=== PATIENT | female | born 1955 | race Caucasian/White ===

== ENCOUNTER 2016-12-26 12:16 | Inpatient (IN) | payer OTHER ==
[~2016-12-26] VITALS: Ht 154.9 cm; Wt 58.4 kg
[2016-12-26 12:22] VITALS: BP 143/89; PULSE 79; RESP 16; TEMP 97.6; O2SAT 100
--- NOTE | 2016-12-26 12:41 | PD ---
HPI Chief Complaint: Skin Problem Time Seen by Provider: 12:41 Travel History International Travel<30 days: No Contact w/Intl Traveler<30days: No Traveled to known affect area: No History of Present Illness HPI 61-year-old female came to the emergency room with history of abscess in her pubic area going to the left lower abdominal wall. Patient was in the urgent care and she was sent to the emergency room given the extent of the abscess. An says that she has had it for past 1 week. She had issues with her insurance and hence did not want to come to the emergency room to that got fixed. Since yesterday she has started to drain purulent drainage from one of the openings on the pubic area. The pain is little better since then. She does not have a primary care physician. Patient otherwise looks in no severe distress PFSH Past Medical History Narrative Medical List of her past medical, surgical, social and family history is reviewed from the nursing note. 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 Reported Meds & Prescriptions Reported Meds & Active Scripts Active Narrative Medication List of home medications reviewed from the nursing note. Review of Systems Except as stated in HPI: all other systems reviewed are Neg Physical Exam Narrative GENERAL: Awake, alert, no obvious distress SKIN: Focused skin assessment warm/dry. Extensive 10 x 5 cm abscess from mons pubis all the way up to the anterior superior iliac spine on the right-hand side. There is fluctuant fluid collection all throughout that area extending up to the lower abdominal wall superiorly. Inferiorly it is restricted by the inguinal ligament. HEAD: Atraumatic. Normocephalic. EYES: Pupils equal and round. No scleral icterus. No injection or drainage. ENT: No nasal bleeding or discharge. Mucous membranes pink and moist. NECK: Trachea midline. No JVD. CARDIOVASCULAR: Regular rate and rhythm. No murmur appreciated. RESPIRATORY: No accessory muscle use. Clear to auscultation. Breath sounds equal bilaterally. GASTROINTESTINAL: Abdomen soft, non-tender, nondistended. Hepatic and splenic margins not palpable. MUSCULOSKELETAL: No obvious deformities. No clubbing. No cyanosis. No edema. NEUROLOGICAL: Awake and alert. No obvious cranial nerve deficits. Motor grossly within normal limits. Normal speech. PSYCHIATRIC: Appropriate mood and affect; insight and judgment normal. Data Data Last Documented VS Orders Complete Blood Count With Diff (12/26/16 12:46) Comprehensive Metabolic Panel (12/26/16 12:46) Lactic Acid Sepsis Protocol (12/26/16 12:46) Urinalysis - C+S If Indicated (12/26/16 12:46) Blood Culture (12/26/16 12:46) Wound Culture And Gram Stain (12/26/16 12:46) Chest, Single Ap (12/26/16 12:46) Blood Glucose (12/26/16 12:46) Ecg Monitoring (12/26/16 12:46) Iv Access Insert/Monitor (12/26/16 12:46) Oximetry (12/26/16 12:46) Oxygen Administration (12/26/16 12:46) Ct Abd/Pel W Iv Contrast(Rout) (12/26/16 ) Vancomycin Inj (Vancomycin Inj) (12/26/16 13:00) Piperacil-Tazo 4.5 Gm Premix (Zosyn 4.5 (12/26/16 13:00) Urine Culture (12/26/16 12:50) Iohexol 350 Inj (Omnipaque 350 Inj) (12/26/16 14:22) Admit Order (Ed Use Only) (12/26/16 14:49) Labs Laboratory Tests Test 12/26/16 12/26/16 12:50 13:00 Urine Collection Type CATH Urine Color YELLOW Urine Turbidity CLEAR Urine pH 5.5 Urine Specific [place] 1.010 Urine Protein TRACE mg/dL Urine Glucose (UA) NEG mg/dL Urine Ketones NEG mg/dL Urine Occult Blood NEG Urine Nitrite POS Urine Bilirubin NEG Urine Leukocyte Esterase SMALL Urine WBC 3-5 /hpf Urine Squamous Epithelial 0-5 /hpf Cells Urine Bacteria MANY /hpf Microscopic Urinalysis Comment CULTURE INDICATED White Blood Count 9.6 TH/MM3 Red Blood Count 4.65 MIL/MM3 Hemoglobin 14.3 GM/DL Hematocrit 42.9 % Mean Corpuscular Volume 92.1 FL Mean Corpuscular Hemoglobin 30.6 PG Mean Corpuscular Hemoglobin 33.2 % Concent Red Cell Distribution Width 14.2 % Platelet Count 377 TH/MM3 Mean Platelet Volume 7.5 FL Neutrophils (%) (Auto) 82.2 % Lymphocytes (%) (Auto) 10.7 % Monocytes (%) (Auto) 5.5 % Eosinophils (%) (Auto) 0.9 % Basophils (%) (Auto) 0.7 % Neutrophils # (Auto) 7.9 TH/MM3 Lymphocytes # (Auto) 1.0 TH/MM3 Monocytes # (Auto) 0.5 TH/MM3 Eosinophils # (Auto) 0.1 TH/MM3 Basophils # (Auto) 0.1 TH/MM3 CBC Comment DIFF FINAL Differential Comment MDM Medical Decision Making Medical Screen Exam Complete: Yes Emergency Medical Condition: Yes Medical Record Reviewed: Yes Differential Diagnosis Abscess, complicated extensive abscess Narrative Course 12:51 PM have ordered blood work, CT abdomen pelvis. Patient has told me that she does not have history of diabetes although she has not seen a doctor for a while. The abscess is pretty extensive and I have started her on right spectrum antibiotic. I have ordered a CT scan as well to see the extent of the abscess internally. She might need to be transferred to the main hospital. Patient will require abscess drainage by the surgeon. [address] scan shows a lot of inflammatory changes and induration with no abscess pocket as per the radiologist. I discussed the case with Dr. Leon from general surgery. He wants the patient to be admitted medically and he'll consult on the patient. Hospitalist has accepted the patient. I let her know about the plan and she is comfortable with it. Procedures EKG Prior to Arrival: No Physician Communication Physician Communication Dr. Leon Diagnosis Primary Impression: Abdominal wall abscess Additional Impression: UTI (urinary tract infection) Qualified Code: N39.0 - Urinary tract infection without hematuria, site unspecified Admitting Information Admitting Physician Requests: Observation Scripts Rifampin 300 Mg Ytt017 Mg PO BID #28 CAP Ref 0 Prov:Jhony Gunter MD 12/30/16 Sulfamethoxazole-Trimethoprim (Bactrim DS)800-160 Mg Tab1 Tab PO BID #28 TAB Ref 0 Prov:Jhony Gunter MD 12/30/16 Oxycodone 5 Mg Tab5 Mg PO Q4H PRN (pain) #30 TAB Prov:Jhony Gunter MD 12/30/16 Rosangela Tinsley MD December 26, 2016 12:41 [facility] Medical Decision Making Medical Screen Exam Complete: Yes Emergency Medical Condition: Yes Medical Record Reviewed: Yes Differential Diagnosis Abscess, complicated extensive abscess Narrative Course 12:51 PM have ordered blood work, CT abdomen pelvis. Patient has told me that she does not have history of diabetes although she has not seen a doctor for a while. The abscess is pretty extensive and I have started her on right spectrum antibiotic. I have ordered a CT scan as well to see the extent of the abscess internally. She might need to be transferred to the main hospital. Patient will require abscess drainage by the surgeon. [address] scan shows a lot of inflammatory changes and induration with no abscess pocket as per the radiologist. I discussed the case with Dr. Leon from general surgery. He wants the patient to be admitted medically and he'll consult on the patient. Hospitalist has accepted the patient. I let her know about the plan and she is comfortable with it. Procedures EKG Prior to Arrival: No Physician Communication Physician Communication Dr. Leon Diagnosis Primary Impression: Abdominal wall abscess Additional Impression: UTI (urinary tract infection) Qualified Code: N39.0 - Urinary tract infection without hematuria, site unspecified Admitting Information Admitting Physician Requests: Observation Scripts No Active Prescriptions or Reported Meds Rosangela Tinsley MD December 26, 2016 12:41
[2016-12-26 13:00] LABS: BLOOD, URINE NEG (NEG); GLUCOSE,URINE NEG (NEG); KETONE, URINE NEG (NEG); PH, URINE 5.5 (5.0-8.5)
[2016-12-26] MEDS ORDERED: VANCOMYCIN INJ 1,000 MG in SODIUM CHLOR 0.9% 250 ML INJ 250 ML IV ONE (13:00)
[2016-12-26] MEDS ORDERED: PIPERACIL-TAZO 4.5 GM PREMIX 100 ML IV ONE (13:00)
[2016-12-26 13:04] LABS: NITRITE,URINE POS (NEG)
[2016-12-26 13:06] LABS: METHOD OF COLLECTION CATH; URINE COLOR YELLOW (YELLW/STRAW)
[2016-12-26 13:07] LABS: BACTERIA, URINE MANY /hpf; COMMENT (UR) CULTURE INDICATED; CULTURE IF INDICATED CULTURE INDICATED; SQUAMOUS EPITHELIAL CELL URINE 0-5 /hpf (0-5)
[2016-12-26 13:13] LABS: AUTOMATED NEUTROPHIL # 7.9 TH/MM3 (1.8-7.7); BASOPHIL # 0.1 TH/MM3 (0-0.2); BASOPHIL % 0.7 % (0.0-2.0); EOSINOPHIL # 0.1 TH/MM3 (0-0.4); EOSINOPHIL % 0.9 % (0.0-4.0); HEMATOCRIT 42.9 % (35.0-46.0); LYMPH % 10.7 % (9.0-44.0); MEAN CELL VOLUME 92.1 FL (80.0-100.0); MEAN CORPUSCULAR HEMOGLOBIN 30.6 PG (27.0-34.0); MEAN CORPUSCULAR HGB CONC 33.2 % (32.0-36.0); MONO % 5.5 % (0.0-8.0); NEUT % 82.2 % (16.0-70.0); PLATELET COUNT 377 TH/MM3 (150-450); RED BLOOD COUNT 4.65 MIL/MM3 (4.00-5.30); RED CELL DISTRIBUTION WIDTH 14.2 % (11.6-17.2); WHITE BLOOD COUNT 9.6 TH/MM3 (4.0-11.0)
[2016-12-26 13:14] LABS: HEMO FLAGS DIFF FINAL
--- NOTE | 2016-12-26 13:23 | RADHPO ---
EXAM DATE/TIME: 12/26/2016 12:57 [facility] COMPARISON: No previous studies available for comparison. INDICATIONS : Patient states she has been short of breath since this morning. She also states she has a boil that h as burst. MEDICAL HISTORY : None. SURGICAL HISTORY : None. ENCOUNTER: Initial ACUITY: 1 day PAIN SCORE: 0/10 LOCATION: Bilateral chest FINDINGS: The heart is normal. The pulmonary vascular pattern is normal. There is minimal blunting of the cos tophrenic recesses consistent with tiny pleural effusions and/or pleural thickening. No focal pulmon zeyad consolidation is noted. CONCLUSION: 1. Blunting of the costophrenic recesses consistent with tiny pleural effusions and/or pleural thick ening. 2. No acute focal pulmonary infiltrate or pulmonary vascular congestion. Dat Villavicencio MD on December 26, 2016 at 13:16 Board Certified Radiologist. This report was verified electronically.
[2016-12-26 13:25] LABS: CHLORIDE 105 MEQ/L (98-107); POTASSIUM 3.5 MEQ/L (3.5-5.1); SODIUM (NA) 141 MEQ/L (136-145)
[2016-12-26 13:27] VITALS: BP 138/77; PULSE 85; RESP 18
[2016-12-26 13:29] LABS: ANION GAP 11 MEQ/L (5-15); BICARBONATE 25.2 MEQ/L (21.0-32.0); BLOOD UREA NITROGEN 12 MG/DL (7-18)
[2016-12-26 13:32] LABS: ALT (GPT) 16 U/L (10-53); AST (GOT) 13 U/L (15-37); GLOMERULAR FILTRATION RATE 64 ML/MIN (>89)
[2016-12-26 13:33] LABS: TOTAL BILIRUBIN ADULT 0.4 MG/DL (0.2-1.0)
[2016-12-26 13:35] LABS: ALKALINE PHOSPHATASE 138 U/L (45-117)
[2016-12-26 14:20] VITALS: BP 120/75; PULSE 77; RESP 18; O2SAT 98
[2016-12-26] MEDS ORDERED: IOHEXOL 350 MG/ML 10 ML VIAL (for RAD DIAG) IV ONE (14:22)
--- NOTE | 2016-12-26 14:39 | RADHPO ---
EXAM DATE/TIME: 12/26/2016 13:49 [facility] COMPARISON: No previous studies available for comparison. INDICATIONS : Patient complains of boil right pubic area. IV CONTRAST: 95 cc Omnipaque 350 (iohexol) IV Injection Site: Lt AC Lot: [id number] Exp Date: Sep 2019 Lot: Exp Date : ORAL CONTRAST: No oral contrast ingested. RADIATION DOSE: 6.41 CTDIvol (mGy) MEDICAL HISTORY : None SURGICAL HISTORY : Hysterectomy. ENCOUNTER: Initial ACUITY: 1 day PAIN SCALE: 0/10 LOCATION: Right lower quadrant TECHNIQUE: Volumetric scanning of the abdomen and pelvis was performed. Using automated exposure control and ad justment of the mA and/or kV according to patient size, radiation dose was kept as low as reasonably achievable to obtain optimal diagnostic quality images. FINDINGS: LOWER LUNGS: The visualized lower lungs are clear. LIVER: Homogeneous density without lesion. There is no dilation of the biliary tree. No calcified [place] es. SPLEEN: Normal size without lesion. PANCREAS: Within normal limits. KIDNEYS: Normal in size and shape. There is no mass, stone or hydronephrosis. ADRENAL GLANDS: Within normal limits. VASCULAR: Diffuse calcified atherosclerotic plaque. No aneurysmal change or appreciable stenosis. BOWEL/MESENTERY: The stomach, small bowel, and colon demonstrate no acute abnormality. There is no free intraperitone al air or fluid. ABDOMINAL WALL: There is stranding of the subcutaneous fat involving the right lower quadrant anterior abdominal wall . No abscess or fluid collection observed. RETROPERITONEUM: There is no lymphadenopathy. BLADDER: No wall thickening or mass. REPRODUCTIVE: Within normal limits. INGUINAL: There is a single enlarged lymph node within the left external iliac chain. It has rim calcification. This measures 2.3 x 1.7 cm. No other adenopathy seen. MUSCULOSKELETAL: Within normal limits for patient age. CONCLUSION: 1. Inflammatory process involving the right lower quadrant intra-abdominal wall. No abscess or fluid collection. 2. Solitary enlarged left external iliac lymph node. No other adenopathy appreciated. Consider follow up CT of the abdomen and pelvis in 6-12 months to document stability. Heber Izquierdo Jr., MD on December 26, 2016 at 14:29 Board Certified Radiologist. This report was verified electronically.
[2016-12-26] MEDS ORDERED: SODIUM CHLOR 0.9% 1000 ML INJ 1,000 ML IV SCH (15:07)
[2016-12-26] MEDS ORDERED: NALOXONE HCL 0.4 MG/ML AMP IV PRN (15:15)
[2016-12-26] MEDS ORDERED: MORPHINE SULFATE 4 MG/ML INJ IV PRN (15:15)
[2016-12-26] MEDS ORDERED: ONDANSETRON HCL 4 MG/2 ML VIAL IVP PRN (15:15)
[2016-12-26] MEDS ORDERED: SENNOSIDES 8.6 MG TAB PO PRN (15:15)
[2016-12-26] MEDS ORDERED: SODIUM CHLORIDE 0.9% FLUSH 10 ML FLUSH IV FLUSH PRN (15:15)
[2016-12-26] MEDS ORDERED: ACETAMINOPHEN 325 MG TAB PO PRN ×2 (15:15)
--- NOTE | 2016-12-26 15:29 | HHI.HP ---
[facility] Primary Care Physician Admission Diagnosis inferior abdominal wall cellulitis, draining abscess Diagnoses: Chief Complaint: Abscess Travel History International Travel<30 Days: No Contact w/Intl Traveler <30 Da: No Traveled to Known Affected Are: No History of Present Illness The patient is a 61-year-old female with no significant past medical history who is presenting to the hospital with an abscess. The patient says that about 4 or 5 days ago she noticed a boil on the mound of her pubic area. She did say she shaves that area. She said it was bothersome and painful. She said it continued to enlarge. She tried taking hot baths and using warm compresses but those did not seem to help. On Sunday she went to urgent care but she left before they could treat her because there were insurance problems. She says she tried using a bread and milk poultice and after using that the area started draining spontaneously. She denied a foul-smelling odor associated with it. She did say that the area of infection along with the lower right side of her abdomen and right flank was very red and very tender. She said the pain was a 9 out of 10 in severity at its worst. She denies any fevers. She does endorse a loss of appetite. She says the abscess has continued to drain and today it looks 65% better than it did a few days ago. She went back to urgent care today and she was referred to the emergency department. She currently says she is pain-free. She said previously she had a hard time ambulating secondary to the pain but now she is ambulating at baseline. Review of Systems Except as stated in HPI: all other systems reviewed are Neg Past Family Social History Past Medical History Denies Past Surgical History Bilateral wrist surgery Hysterectomy Tubal ligation Tonsillectomy Allergies: Coded Allergies: Alcohol (Verified Allergy, Severe, 12/26/16) Doxycycline (Verified Allergy, Severe, 12/26/16) Active Ordered Medications Current Medications Medications (Trade) Dose Ordered Sig/Deann Route Start Time Stop Time Status Last Admin (NS 1000 ml Inj) 1,000 ml @ 100 mls/hr Q10H IV 12/26/16 15:07 12/27/16 01:06 UNV (NS Flush) 2 ml UNSCH PRN IV FLUSH 12/26/16 15:15 UNV (NS Flush) 2 ml BID IV FLUSH 12/26/16 21:00 UNV (Tylenol) 650 mg Q4H PRN PO 12/26/16 15:15 UNV (Zofran Inj) 4 mg Q6H PRN IVP 12/26/16 15:15 UNV (Colace) 100 mg Q12H PO 12/26/16 15:15 UNV (Senokot) 17.2 mg Q12H PRN PO 12/26/16 15:15 UNV (Tylenol) 650 mg Q6H PRN PO 12/26/16 15:15 UNV (Roxicodone) 10 mg Q4H PRN PO 12/26/16 15:15 UNV (Morphine Inj) 4 mg Q3H PRN IV 12/26/16 15:15 UNV (Roxicodone) 5 mg Q4H PRN PO 12/26/16 15:15 UNV (Narcan Inj) 0.4 mg UNSCH PRN IV 12/26/16 15:15 UNV Family History CAD Diabetes Brain cancer Melanoma Gynecological cancer Social History The patient smokes 1 pack daily. She has social alcohol use. She smokes marijuana occasionally. Physical Exam Vital Signs Vital Signs Date Time Temp Pulse Resp B/P Pulse Ox O2 Delivery O2 Flow Rate FiO2 12/26/16 14:20 77 18 120/75 98 Room Air 12/26/16 13:27 85 18 138/77 Room Air 99 12/26/16 13:11 100 Room Air 12/26/16 12:22 97.6 79 16 143/89 100 Physical Exam GENERAL: Resting comfortably, no obvious distress. SKIN: Extensive 10 x 5 cm abscess from mons pubis all the way up to the anterior superior iliac spine on the right-hand side. There is fluctuant fluid collection all throughout that area extending up to the lower abdominal wall superiorly. Inferiorly it is restricted by the inguinal ligament. Nontender to palpation. HEAD: Atraumatic. Normocephalic. EYES: Pupils equal and round. No scleral icterus. No injection or drainage. ENT: No nasal bleeding or discharge. Mucous membranes pink and moist. NECK: Trachea midline. No JVD. CARDIOVASCULAR: Regular rate and rhythm. No murmur appreciated. RESPIRATORY: No accessory muscle use. Clear to auscultation. Breath sounds equal bilaterally. GASTROINTESTINAL: Abdomen soft, non-tender, nondistended. Hepatic and splenic margins not palpable. MUSCULOSKELETAL: No obvious deformities. No clubbing. No cyanosis. No edema. NEUROLOGICAL: Awake and alert. No obvious cranial nerve deficits. Motor grossly within normal limits. Normal speech. PSYCHIATRIC: Appropriate mood and affect; insight and judgment normal. Laboratory Laboratory Tests Test 12/26/16 12/26/16 12:50 13:00 Urine Collection Type CATH Urine Color YELLOW Urine Turbidity CLEAR Urine pH 5.5 Urine Specific [place] 1.010 Urine Protein TRACE Urine Glucose (UA) NEG Urine Ketones NEG Urine Occult Blood NEG Urine Nitrite POS Urine Bilirubin NEG Urine Leukocyte Esterase SMALL Urine WBC 3-5 Urine Squamous Epithelial 0-5 Cells Urine Bacteria MANY Microscopic Urinalysis Comment CULTURE INDICATED White Blood Count 9.6 Red Blood Count 4.65 Hemoglobin 14.3 Hematocrit 42.9 Mean Corpuscular Volume 92.1 Mean Corpuscular Hemoglobin 30.6 Mean Corpuscular Hemoglobin 33.2 Concent Red Cell Distribution Width 14.2 Platelet Count 377 Mean Platelet Volume 7.5 Neutrophils (%) (Auto) 82.2 Lymphocytes (%) (Auto) 10.7 Monocytes (%) (Auto) 5.5 Eosinophils (%) (Auto) 0.9 Basophils (%) (Auto) 0.7 Neutrophils # (Auto) 7.9 Lymphocytes # (Auto) 1.0 Monocytes # (Auto) 0.5 Eosinophils # (Auto) 0.1 Basophils # (Auto) 0.1 CBC Comment DIFF FINAL Differential Comment Sodium Level 141 Potassium Level 3.5 Chloride Level 105 Carbon Dioxide Level 25.2 Anion Gap 11 Blood Urea Nitrogen 12 Creatinine 0.90 Estimat Glomerular Filtration 64 Rate Random Glucose 88 Lactic Acid Level 1.0 Calcium Level 9.0 Total Bilirubin 0.4 Aspartate Amino Transf 13 (AST/SGOT) Alanine Aminotransferase 16 (ALT/SGPT) Alkaline Phosphatase 138 Total Protein 7.7 Albumin 3.1 Date/Time Procedure Status Source Growth 12/26/16 13:05 Aerobic Blood Culture Received Blood Peripheral Pending 12/26/16 13:05 Anaerobic Blood Culture Received Blood Peripheral Pending 12/26/16 13:00 Gram Stain Received Wound Abdomen Pending 12/26/16 13:00 Wound Culture Received Wound Abdomen Pending 12/26/16 12:50 Urine Culture Received Urine Catheterized Urine Pending Result Diagram: 12/26/16 1300 12/26/16 1300 Imaging Last Impressions Chest X-Ray 12/26/16 1246 Signed Impressions: Service Date/Time: Monday, December 26, 2016 12:57 - CONCLUSION: 1. Blunting of the costophrenic recesses consistent with tiny pleural effusions and/or pleural thickening. 2. No acute focal pulmonary infiltrate or pulmonary vascular congestion. Dat Villavicencio MD Abdomen/Pelvis CT 12/26/16 0000 Signed Impressions: Service Date/Time: Monday, December 26, 2016 13:49 - CONCLUSION: 1. Inflammatory process involving the right lower quadrant intra-abdominal wall. No abscess or fluid collection. 2. Solitary enlarged left external iliac lymph node. No other adenopathy appreciated. Consider followup CT of the abdomen and pelvis in 6-12 months to document stability. Heber Izquierdo Jr., MD Assessment and Plan Assessment and Plan Suprapubic abscess The pt developed an abscess following shaving in that area. She did endorse significant drainage from the site and she says it looks and feels a lot better. CT showed: Inflammatory process involving the right lower quadrant intra-abdominal wall; No abscess or fluid collection; Solitary enlarged left external iliac lymph node; No other adenopathy appreciated. - continue vancomycin and Zosyn. - IVFs. - pain control with a bowel regimen. - general surgery consult pending. - follow wound and blood cultures. - followup CT of the abdomen and pelvis in 6-12 months to document stability. UTI UA indicative of infection. - antibiotics as above. - follow urine culture. Nicotine dependence The pt smokes a pack daily. - cessation instruction. - nicotine patch if needed. Code Status Full. Discussed Condition With Dr. Tinsley, nurse. Melecio Quick DO December 26, 2016 15:29
[2016-12-26] MEDS ORDERED: Vancomycin Consult Pharmacy 1 EA OTHER SCH (15:30)
[2016-12-26 16:00] VITALS: BP 124/74; PULSE 84; RESP 18; TEMP 98; O2SAT 98
[2016-12-26] MEDS ORDERED: POTASSIUM CHLORIDE 20 MEQ CONTROLLED RELEASE TAB PO ONE (16:00)
--- NOTE | 2016-12-26 19:03 | PD.CONS ---
cc: Tam Leon MD HPI Service General Surgery Consult Requested By Dr. Quick Reason for Consult RIGHT inguinal superficial abscess Primary Care Physician No Primary Care Physician History of Present Illness This is a 61 year old female who started noticing a red area in her RIGHT groin area about 6 days ago. On Sunday the pain increased and she went to an Urgent Care. She left before being seen due to insurance reasons. On Sunday evening she put bread and milk poultice on the area and on Sunday she reports there was a 65% improvement in the size and decrease in pain. She noticed thick off white drainage on Sunday. She does report she shaves that area. She has come to the ED at [facility] for evaluation of the RIGHT groin. A General Surgery consultation has been requested. Review of Systems Constitutional: DENIES: Fever, Weight gain Endocrine: DENIES: Polydipsia, Polyuria, Polyphagia Eyes: DENIES: Diplopia, Eye inflammation Ears, nose, mouth, throat: DENIES: Hearing loss, Vertigo Respiratory: DENIES: Apneas, Cough Cardiovascular: DENIES: Chest pain, Palpitations Gastrointestinal: DENIES: Abdominal pain, Nausea, Vomiting Genitourinary: DENIES: Urinary frequency, Urinary incontinence Musculoskeletal: DENIES: Joint pain Integumentary: COMPLAINS OF: Abnormal pigmentation (Red RIGHT inguinal area with swelling ) Hematologic/lymphatic: DENIES: Bruising Immunologic/allergic: DENIES: Eczema Neurologic: DENIES: Headache, Localized weakness Psychiatric: DENIES: Mood changes, Depression, Hallucinations Past Family Social History Past Medical History None Past Surgical History Bilateral wrist surgery Hysterectomy Tubal ligation Tonsillectomy Reported Medications None Allergies: Coded Allergies: Alcohol (Verified Allergy, Severe, 12/26/16) Doxycycline (Verified Allergy, Severe, 12/26/16) *MDRO Multi-Drug Resistant Organism (Verified Adverse Reaction, Unknown, ) 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; (groin) - 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/16 Active Ordered Medications Current Medications Medications (Trade) Dose Ordered Sig/Deann Route Start Time Stop Time Status Last Admin (NS 1000 ml Inj) 1,000 ml @ 100 mls/hr Q10H IV 12/26/16 15:07 12/27/16 01:06 12/26/16 15:22 (NS Flush) 2 ml UNSCH PRN IV FLUSH 12/26/16 15:15 (NS Flush) 2 ml BID IV FLUSH 12/26/16 21:00 (Tylenol) 650 mg Q4H PRN PO 12/26/16 15:15 (Zofran Inj) 4 mg Q6H PRN IVP 12/26/16 15:15 (Colace) 100 mg Q12HR PO 12/26/16 21:00 (Senokot) 17.2 mg Q12H PRN PO 12/26/16 15:15 (Tylenol) 650 mg Q6H PRN PO 12/26/16 15:15 (Roxicodone) 10 mg Q4H PRN PO 12/26/16 15:15 (Morphine Inj) 4 mg Q3H PRN IV 12/26/16 15:15 (Roxicodone) 5 mg Q4H PRN PO 12/26/16 15:15 Naloxone HCl 0.4 mg 0.4 mg UNSCH PRN IV 12/26/16 15:15 Piperacillin Sod/ Tazobactam Sod 100 ml @ 200 mls/hr Q6H IV 12/26/16 20:00 Pharmacy Profile Note 0 ml @ 0 mls/hr UNSCH OTHER 12/26/16 15:30 (Vancomycin Inj/ NS 250 ml Inj) 250 ml @ 250 mls/hr DAILY@13 IV 12/27/16 13:00 Family History Non contributory Social History + Tobacco --- 1 pack/day + ETOH--- social; not daily Denies illicit drug use Physical Exam Vital Signs Vital Signs Date Time Temp Pulse Resp B/P Pulse Ox O2 Delivery O2 Flow Rate FiO2 12/26/16 16:00 98.0 84 18 124/74 98 12/26/16 16:00 98.0 84 18 124/74 98 12/26/16 14:20 77 18 120/75 98 Room Air 12/26/16 13:27 85 18 138/77 Room Air 99 12/26/16 13:11 100 Room Air 12/26/16 12:22 97.6 79 16 143/89 100 Physical Exam GENERAL: Pleasant 61 year old female resting in bed in NAD. SKIN: RIGHT inguinal area: reddened area with peeling skin; edema; small opening in reddened area with spontaneously draining thick pus. Manually expressed about 15 cc during exam. HEAD: Atraumatic. Normocephalic. EYES: Pupils equal and round. No scleral icterus. No injection or drainage. ENT: No nasal bleeding or discharge. Mucous membranes pink and moist. NECK: Trachea midline. CARDIOVASCULAR: Regular rate and rhythm. RESPIRATORY: No accessory muscle use. Clear to auscultation. Breath sounds equal bilaterally. GASTROINTESTINAL: Abdomen soft, non-tender, nondistended. . MUSCULOSKELETAL: Extremities without clubbing, cyanosis, or edema. No obvious deformities. NEUROLOGICAL: Awake and alert. No obvious cranial nerve deficits. Motor grossly within normal limits. Five out of 5 muscle strength in the arms and legs. Normal speech. PSYCHIATRIC: Appropriate mood and affect; insight and judgment normal. Laboratory Laboratory Tests Test 12/26/16 12/26/16 12:50 13:00 Urine Collection Type CATH Urine Color YELLOW Urine Turbidity CLEAR Urine pH 5.5 Urine Specific [place] 1.010 Urine Protein TRACE Urine Glucose (UA) NEG Urine Ketones NEG Urine Occult Blood NEG Urine Nitrite POS Urine Bilirubin NEG Urine Leukocyte Esterase SMALL Urine WBC 3-5 Urine Squamous Epithelial 0-5 Cells Urine Bacteria MANY Microscopic Urinalysis Comment CULTURE INDICATED White Blood Count 9.6 Red Blood Count 4.65 Hemoglobin 14.3 Hematocrit 42.9 Mean Corpuscular Volume 92.1 Mean Corpuscular Hemoglobin 30.6 Mean Corpuscular Hemoglobin 33.2 Concent Red Cell Distribution Width 14.2 Platelet Count 377 Mean Platelet Volume 7.5 Neutrophils (%) (Auto) 82.2 Lymphocytes (%) (Auto) 10.7 Monocytes (%) (Auto) 5.5 Eosinophils (%) (Auto) 0.9 Basophils (%) (Auto) 0.7 Neutrophils # (Auto) 7.9 Lymphocytes # (Auto) 1.0 Monocytes # (Auto) 0.5 Eosinophils # (Auto) 0.1 Basophils # (Auto) 0.1 CBC Comment DIFF FINAL Differential Comment Sodium Level 141 Potassium Level 3.5 Chloride Level 105 Carbon Dioxide Level 25.2 Anion Gap 11 Blood Urea Nitrogen 12 Creatinine 0.90 Estimat Glomerular Filtration 64 Rate Random Glucose 88 Lactic Acid Level 1.0 Calcium Level 9.0 Total Bilirubin 0.4 Aspartate Amino Transf 13 (AST/SGOT) Alanine Aminotransferase 16 (ALT/SGPT) Alkaline Phosphatase 138 Total Protein 7.7 Albumin 3.1 Date/Time Procedure Status Source Growth 12/26/16 13:05 Aerobic Blood Culture Received Blood Peripheral Pending 12/26/16 13:05 Anaerobic Blood Culture Received Blood Peripheral Pending 12/26/16 13:00 Gram Stain Received Wound Abdomen Pending 12/26/16 13:00 Wound Culture Received Wound Abdomen Pending 12/26/16 12:50 Urine Culture Received Urine Catheterized Urine Pending Imaging Last 48 hours Impressions Chest X-Ray 12/26/16 1246 Signed Impressions: Service Date/Time: Monday, December 26, 2016 12:57 - CONCLUSION: 1. Blunting of the costophrenic recesses consistent with tiny pleural effusions and/or pleural thickening. 2. No acute focal pulmonary infiltrate or pulmonary vascular congestion. Dat Villavicencio MD Abdomen/Pelvis CT 12/26/16 0000 Signed Impressions: Service Date/Time: Monday, December 26, 2016 13:49 - CONCLUSION: 1. Inflammatory process involving the right lower quadrant intra-abdominal wall. No abscess or fluid collection. 2. Solitary enlarged left external iliac lymph node. No other adenopathy appreciated. Consider followup CT of the abdomen and pelvis in 6-12 months to document stability. Heber Izquierdo Jr., MD Assessment and Plan Assessment and Plan 61 year old female with spontaneously draining RIGHT inguinal superficial abscess; UTI -Continue dressing changes -Warm showers daily -K-pad to area -US for possible aspiration -Continue antibiotics -UTI management per primary team -Will continue to follow; patient may need an I&D Discussed Condition With Dr. Edward Espinosa Attending Statement patient seen at bedside pt with draining abscess but still with undrained fluid collection, ct reviewed with minimal fluid collection discussed with patient and staff. Pt will go to OR for I and D and VAC placement. Attestation Attending NoteThe exam, history, and the medical decision-making described in the above note were completed with the assistance of the mid-level provider. I reviewed and agree with the findings presented. I attest that I had a [id number] encounter with the patient on the same day, and personally performed and documented my assessment and findings in the medical record. Ignacia Malone December 26, 2016 19:03 Tam Leon MD January 04, 2017 21:42
[2016-12-26 20:00] VITALS: BP 131/85; PULSE 64; RESP 20; TEMP 97.1; O2SAT 95
[2016-12-26] MEDS: SODIUM CHLORIDE 0.9% FLUSH 10 ML FLUSH IV FLUSH SCH (21:00)
[2016-12-26] MEDS: PIPERACIL-TAZO 4.5 GM PREMIX 100 ML IV SCH (21:17)
[2016-12-26] MEDS: DOCUSATE SODIUM 100 MG CAP PO SCH (21:17)
[2016-12-27] VITALS: BP 119/71; PULSE 65; RESP 20; TEMP 97.4; O2SAT 96
[2016-12-27] MEDS: PIPERACIL-TAZO 4.5 GM PREMIX 100 ML IV SCH ×4 (01:34→20:18)
[2016-12-27 06:13] LABS: POTASSIUM 3.9 MEQ/L (3.5-5.1)
[2016-12-27 06:17] LABS: BICARBONATE 27.4 MEQ/L (21.0-32.0)
[2016-12-27 07:04] LABS: AUTOMATED NEUTROPHIL # 5.3 TH/MM3 (1.8-7.7); BASOPHIL % 0.6 % (0.0-2.0); EOSINOPHIL # 0.2 TH/MM3 (0-0.4); EOSINOPHIL % 2.7 % (0.0-4.0); HEMATOCRIT 41.7 % (35.0-46.0); HEMO FLAGS DIFF FINAL; LYMPH % 19.6 % (9.0-44.0); LYMPHOCYTE # 1.5 TH/MM3 (1.0-4.8); MEAN CORPUSCULAR HEMOGLOBIN 29.9 PG (27.0-34.0); MEAN CORPUSCULAR HGB CONC 32.5 % (32.0-36.0); MONO % 7.4 % (0.0-8.0); NEUT % 69.7 % (16.0-70.0); PLATELET COUNT 344 TH/MM3 (150-450); RED BLOOD COUNT 4.53 MIL/MM3 (4.00-5.30); RED CELL DISTRIBUTION WIDTH 14.4 % (11.6-17.2); WHITE BLOOD COUNT 7.6 TH/MM3 (4.0-11.0)
--- NOTE | 2016-12-27 07:59 | HHI.PR ---
Subjective Subjective Notes pain better still with draining abscess, no fevers Objective Vitals/I&O Vital Signs Date Time Temp Pulse Resp B/P Pulse Ox O2 Delivery O2 Flow Rate FiO2 12/27/16 00:00 97.4 65 20 119/71 96 12/26/16 14:20 Room Air 12/26/16 13:27 99 Labs Laboratory Tests Test 12/26/16 12/26/16 12/27/16 12:50 13:00 05:30 Urine Collection Type CATH Urine Color YELLOW Urine Turbidity CLEAR Urine pH 5.5 Urine Specific [place] 1.010 Urine Protein TRACE Urine Glucose (UA) NEG Urine Ketones NEG Urine Occult Blood NEG Urine Nitrite POS Urine Bilirubin NEG Urine Leukocyte Esterase SMALL Urine WBC 3-5 Urine Squamous Epithelial 0-5 Cells Urine Bacteria MANY Microscopic Urinalysis Comment CULTURE INDICATED White Blood Count 9.6 7.6 Red Blood Count 4.65 4.53 Hemoglobin 14.3 13.6 Hematocrit 42.9 41.7 Mean Corpuscular Volume 92.1 92.0 Mean Corpuscular Hemoglobin 30.6 29.9 Mean Corpuscular Hemoglobin 33.2 32.5 Concent Red Cell Distribution Width 14.2 14.4 Platelet Count 377 344 Mean Platelet Volume 7.5 8.2 Neutrophils (%) (Auto) 82.2 69.7 Lymphocytes (%) (Auto) 10.7 19.6 Monocytes (%) (Auto) 5.5 7.4 Eosinophils (%) (Auto) 0.9 2.7 Basophils (%) (Auto) 0.7 0.6 Neutrophils # (Auto) 7.9 5.3 Lymphocytes # (Auto) 1.0 1.5 Monocytes # (Auto) 0.5 0.6 Eosinophils # (Auto) 0.1 0.2 Basophils # (Auto) 0.1 0.0 CBC Comment DIFF FINAL DIFF FINAL Differential Comment Sodium Level 141 142 Potassium Level 3.5 3.9 Chloride Level 105 108 Carbon Dioxide Level 25.2 27.4 Anion Gap 11 7 Blood Urea Nitrogen 12 8 Creatinine 0.90 1.00 Estimat Glomerular Filtration 64 57 Rate Random Glucose 88 104 Lactic Acid Level 1.0 Calcium Level 9.0 8.5 Total Bilirubin 0.4 Aspartate Amino Transf 13 (AST/SGOT) Alanine Aminotransferase 16 (ALT/SGPT) Alkaline Phosphatase 138 Total Protein 7.7 Albumin 3.1 Date/Time Procedure Status Source Growth 12/26/16 13:05 Aerobic Blood Culture Received Blood Peripheral Pending 12/26/16 13:05 Anaerobic Blood Culture Received Blood Peripheral Pending 12/26/16 13:00 Gram Stain - Final Resulted Wound Abdomen 12/26/16 13:00 Wound Culture Resulted Wound Abdomen Pending 12/26/16 12:50 Urine Culture Received Urine Catheterized Urine Pending Radiology Last 48 hours Impressions Chest X-Ray 12/26/16 1246 Signed Impressions: Service Date/Time: Monday, December 26, 2016 12:57 - CONCLUSION: 1. Blunting of the costophrenic recesses consistent with tiny pleural effusions and/or pleural thickening. 2. No acute focal pulmonary infiltrate or pulmonary vascular congestion. Dat Villavicencio MD Abdomen/Pelvis CT 12/26/16 0000 Signed Impressions: Service Date/Time: Monday, December 26, 2016 13:49 - CONCLUSION: 1. Inflammatory process involving the right lower quadrant intra-abdominal wall. No abscess or fluid collection. 2. Solitary enlarged left external iliac lymph node. No other adenopathy appreciated. Consider followup CT of the abdomen and pelvis in 6-12 months to document stability. Heber Izquierdo Jr., MD Cardiovascular: Regular Lungs: Clear Abdomen: Other (erythema with drainage of fluid purulent ) A/P Assessment and Plan groin abscess currently draining PLAN NPO 0R today for I and d of groin abscess, possible vac iv abx pain control Tam Leon MD December 27, 2016 07:59
[2016-12-27 08:00] VITALS: BP 149/96; PULSE 71; RESP 20; TEMP 97.4; O2SAT 97
[2016-12-27] MEDS: DOCUSATE SODIUM 100 MG CAP PO SCH ×2 (09:00→20:18)
[2016-12-27] MEDS: SODIUM CHLORIDE 0.9% FLUSH 10 ML FLUSH IV FLUSH SCH ×2 (09:50→20:18)
[2016-12-27] MEDS ORDERED: ONDANSETRON HCL 4 MG/2 ML VIAL IV PUSH ONE (10:09)
[2016-12-27] MEDS ORDERED: PROPOFOL 200 MG/20 ML AMP IV ONE (10:09)
[2016-12-27 12:00] VITALS: BP 128/87; PULSE 54; RESP 20; TEMP 98.6; O2SAT 96
--- NOTE | 2016-12-27 12:34 | HHI.PR ---
Subjective Remarks The pt was resting comfortably. She was anxious about the I&D. She said her pain was controlled. She had no acute complaints. Objective Vitals Vital Signs Date Time Temp Pulse Resp B/P Pulse Ox O2 Delivery O2 Flow Rate FiO2 12/27/16 08:00 97.4 71 20 149/96 97 12/27/16 00:00 97.4 65 20 119/71 96 12/26/16 20:00 97.1 64 20 131/85 95 12/26/16 16:00 98.0 84 18 124/74 98 12/26/16 16:00 98.0 84 18 124/74 98 12/26/16 14:20 77 18 120/75 98 Room Air 12/26/16 13:27 85 18 138/77 Room Air 99 12/26/16 13:11 100 Room Air I/O 12/26/16 12/26/16 12/26/16 12/27/16 12/27/16 12/27/16 07:00 15:00 23:00 07:00 15:00 23:00 Intake Total 480 ml 1260 ml Balance 480 ml 1260 ml Intake Oral 480 ml 240 ml IV Total 1020 ml # Voids 1 1 2 # Bowel Movements 0 2 Result Diagram: 12/27/16 0530 12/27/16 0530 Imaging Last Impressions Chest X-Ray 12/26/16 1246 Signed Impressions: Service Date/Time: Monday, December 26, 2016 12:57 - CONCLUSION: 1. Blunting of the costophrenic recesses consistent with tiny pleural effusions and/or pleural thickening. 2. No acute focal pulmonary infiltrate or pulmonary vascular congestion. Dat Villavicencio MD Abdomen/Pelvis CT 12/26/16 0000 Signed Impressions: Service Date/Time: Monday, December 26, 2016 13:49 - CONCLUSION: 1. Inflammatory process involving the right lower quadrant intra-abdominal wall. No abscess or fluid collection. 2. Solitary enlarged left external iliac lymph node. No other adenopathy appreciated. Consider followup CT of the abdomen and pelvis in 6-12 months to document stability. Heber Izquierdo Jr., MD Objective Remarks GENERAL: Resting comfortably, no obvious distress. SKIN: Extensive 10 x 5 cm abscess from mons pubis all the way up to the anterior superior iliac spine on the right-hand side. There is fluctuant fluid collection all throughout that area extending up to the lower abdominal wall superiorly. Inferiorly it is restricted by the inguinal ligament. Nontender to palpation. HEAD: Atraumatic. Normocephalic. EYES: Pupils equal and round. No scleral icterus. No injection or drainage. ENT: No nasal bleeding or discharge. Mucous membranes pink and moist. NECK: Trachea midline. No JVD. CARDIOVASCULAR: Regular rate and rhythm. No murmur appreciated. RESPIRATORY: No accessory muscle use. Clear to auscultation. Breath sounds equal bilaterally. GASTROINTESTINAL: Abdomen soft, non-tender, nondistended. Hepatic and splenic margins not palpable. MUSCULOSKELETAL: No obvious deformities. No clubbing. No cyanosis. No edema. NEUROLOGICAL: Awake and alert. No obvious cranial nerve deficits. Motor grossly within normal limits. Normal speech. PSYCHIATRIC: Appropriate mood and affect; insight and judgment normal. Procedures I&D scheduled 12/27/16. Medications and IVs Current Medications Medications (Trade) Dose Ordered Sig/Deann Route Start Time Stop Time Status Last Admin (NS Flush) 2 ml UNSCH PRN IV FLUSH 12/26/16 15:15 (NS Flush) 2 ml BID IV FLUSH 12/26/16 21:00 12/27/16 09:50 (Tylenol) 650 mg Q4H PRN PO 12/26/16 15:15 (Zofran Inj) 4 mg Q6H PRN IVP 12/26/16 15:15 (Colace) 100 mg Q12HR PO 12/26/16 21:00 12/26/16 21:17 (Senokot) 17.2 mg Q12H PRN PO 12/26/16 15:15 (Tylenol) 650 mg Q6H PRN PO 12/26/16 15:15 (Roxicodone) 10 mg Q4H PRN PO 12/26/16 15:15 (Morphine Inj) 4 mg Q3H PRN IV 12/26/16 15:15 (Roxicodone) 5 mg Q4H PRN PO 12/26/16 15:15 Naloxone HCl 0.4 mg 0.4 mg UNSCH PRN IV 12/26/16 15:15 Piperacillin Sod/ Tazobactam Sod 100 ml @ 200 mls/hr Q6H IV 12/26/16 20:00 12/27/16 09:50 Pharmacy Profile Note 0 ml @ 0 mls/hr UNSCH OTHER 12/26/16 15:30 (Vancomycin Inj/ NS 250 ml Inj) 250 ml @ 250 mls/hr DAILY@13 IV 12/27/16 13:00 Miscellaneous Information SPECIFIC LAB TO BE DRAWN:VANCO TROUGH DATE... ONCE ONCE .XX 12/29/16 12:45 12/29/16 12:46 A/P Assessment and Plan Suprapubic abscess The pt developed an abscess following shaving in that area. She did endorse significant drainage from the site and she says it looks and feels a lot better. CT showed: Inflammatory process involving the right lower quadrant intra-abdominal wall; No abscess or fluid collection; Solitary enlarged left external iliac lymph node; No other adenopathy appreciated. - continue vancomycin and Zosyn. - IVFs. - pain control with a bowel regimen. - general surgery planning on I&D 12/27. - follow wound and blood cultures. - followup CT of the abdomen and pelvis in 6-12 months to document stability of lymph node. UTI UA indicative of infection. - antibiotics as above. - follow urine culture. Nicotine dependence The pt smokes a pack daily. - cessation instruction. - nicotine patch if needed. PPx: SCDs. Discharge Planning Awaiting surgical clearance. Melecio Quick DO December 27, 2016 12:34
[2016-12-27] MEDS ORDERED: FAMOTIDINE 20 MG/2 ML VIAL ONE (12:56)
[2016-12-27] MEDS ORDERED: MIDAZOLAM HCL 2 MG/2 ML VIAL ONE (12:56)
[2016-12-27] MEDS ORDERED: LACTATED RINGER'S 1000 ML INJ 1,000 ML ONE (13:03)
[2016-12-27] MEDS: VANCOMYCIN INJ 1,000 MG in SODIUM CHLOR 0.9% 250 ML INJ 250 ML IV SCH (13:07)
--- NOTE | 2016-12-27 13:33 | HHI.PR ---
Immediate Post Op Note Procedure Date: December 27, 2016 Pre Op Diagnosis: groin abscess Post Op Diagnosis: same Surgeon: Tam Leon MD It Integration Architect(s): see or sheet Procedure: I and D of groin abscess, vac Findings: pus Complications: none Specimen(s) removed: purulent drainage Estimated blood loss: 5cc Anesthesia: General Drains: Hemovac IVF Patient to: PACU Patient Condition: Good Tam Leon MD December 27, 2016 13:33
[2016-12-27] MEDS ORDERED: MORPHINE SULFATE 8 MG/ML INJ ONE (14:17)
[2016-12-27 16:00] VITALS: BP 152/86; PULSE 55; RESP 18; TEMP 98.6; O2SAT 94
[2016-12-27 20:00] VITALS: BP 124/82; PULSE 49; RESP 20; TEMP 97.9; O2SAT 93
[2016-12-28] VITALS: BP 125/81; PULSE 52; RESP 20; TEMP 96.9; O2SAT 95
[2016-12-28] MEDS: PIPERACIL-TAZO 4.5 GM PREMIX 100 ML IV SCH (02:22)
--- NOTE | 2016-12-28 05:42 | MP ---
cc: AURORA LEON MD DATE OF CONSULTATION 12/27/2016 PREOPERATIVE DIAGNOSIS Groin abscess. POSTOPERATIVE DIAGNOSIS Groin abscess. PROCEDURE PERFORMED Incision and drainage of groin access with VAC placement. SURGEON Dr. Aurora Leon ORTHODONTIST ASSISTANT See OR sheet. ANESTHESIA GETA. IV FLUIDS See anesthesia sheet. ESTIMATED BLOOD LOSS 5 cc. DRAINS Hemovac. COMPLICATIONS None. WOUND CLASSIFICATION Dirty. SPECIMENS Purulent drainage sent for cultures. FINDINGS Long purulent cavity on right side of groin with subcutaneous tracking. No evidence of definitive necrotizing fasciitis noted. Significant purulent drainage found. INDICATION The patient has a several-day history of complaints of right and groin pain, stated concern for ingrown care which started draining purulent drainage, significant erythema as well. The patient came into emergency department and further workup including CT scan showed some subcutaneous purulent fluid. Therefore discussion with the patient and, due to significant retained pus, decision made for operative intervention. DETAILS OF PROCEDURE The patient was taken to the operative suite, placed in supine position. She was prepped and draped in the usual sterile fashion after induction of general endotracheal anesthesia. Brief time-out done stating correct patient, procedure and surgical site. We were all in agreement with this. Attention was directed to the groin abscess. A 2.5 cm incision was made horizontally suprapubically favoring the right side. This was noted over the point of drainage. There was noted to be a purulent cavity tracked on the right side of the groin. Therefore a counter-incision was made more laterally on the right side. The culture was sent for specimen. Pulse lavage done until effluent was clear. The cavity tracked a little farther, more laterally as well. Therefore, entered the induration and breakup of loculations was done. Two VAC sponges were placed on the two open incisions. The plastic dressings were placed. A bridge was done to communicate the two abscess cavities. No evidence of leaking on VAC. The patient tolerated the procedure well. No intraoperative complication. Lap and instrument counts were correct. The patient tolerated the procedure. The patient was extubated and taken to the PACU. MD CECILIA Elise/ANDREW /2:24 PM /5:26 AM JANETH
[2016-12-28 08:00] VITALS: BP 116/79; PULSE 55; RESP 18; TEMP 97.2; O2SAT 94
--- NOTE | 2016-12-28 08:17 | HHI.PR ---
Subjective Subjective Notes Resting in bed No acute events overnight Pain better Objective Vitals/I&O Vital Signs Date Time Temp Pulse Resp B/P Pulse Ox O2 Delivery O2 Flow Rate FiO2 12/28/16 00:00 96.9 52 20 125/81 95 12/27/16 14:55 Room Air 12/26/16 13:27 99 Labs Date/Time Procedure Status Source Growth 12/27/16 13:50 Gram Stain Received Wound Groin Pending 12/27/16 13:50 Wound Culture Received Wound Groin Pending 12/27/16 13:50 Fungal Smear Received Wound Groin Pending 12/27/16 13:50 Fungal Culture Received Wound Groin Pending 12/27/16 13:50 Acid Fast Stain Received Wound Groin Pending 12/27/16 13:50 Mycobacterial Culture Received Wound Groin Pending 12/26/16 13:05 Aerobic Blood Culture - Preliminary Resulted Blood Peripheral NO GROWTH IN 1 DAY 12/26/16 13:05 Anaerobic Blood Culture - Preliminary Resulted Blood Peripheral NO GROWTH IN 1 DAY 12/26/16 13:00 Gram Stain - Final Resulted Wound Abdomen 12/26/16 13:00 Wound Culture - Preliminary Resulted S. Aureus Mrsa 12/26/16 12:50 Urine Culture - Preliminary Resulted Urine Catheterized Urine Gram Negative Raj Radiology Last 48 hours Impressions Chest X-Ray 12/26/16 1246 Signed Impressions: Service Date/Time: Monday, December 26, 2016 12:57 - CONCLUSION: 1. Blunting of the costophrenic recesses consistent with tiny pleural effusions and/or pleural thickening. 2. No acute focal pulmonary infiltrate or pulmonary vascular congestion. Dat Villavicencio MD Abdomen/Pelvis CT 12/26/16 0000 Signed Impressions: Service Date/Time: Monday, December 26, 2016 13:49 - CONCLUSION: 1. Inflammatory process involving the right lower quadrant intra-abdominal wall. No abscess or fluid collection. 2. Solitary enlarged left external iliac lymph node. No other adenopathy appreciated. Consider followup CT of the abdomen and pelvis in 6-12 months to document stability. Heber Izquierdo Jr., MD Cardiovascular: Regular Lungs: Clear Abdomen: Non-distended, Non-tender Narrative Exam RIGHT groin---- Wound Vac in place with good seal; erythremia reduced A/P Assessment and Plan 61 year old female POD1 I&D RIGHT groin with Wound Vac placement -Wound cultures + for MRSA-- on Vancomycin IV -Regular diet -Pain control -OOB to chair today -Maintain Wound Vac -Plan to change dressing tomorrow at bedside ---reapply Wound Vac vs wet to dry -[facility] ordered Attending Statement patient seen at bedside feels better continue wound care Attestation The exam, history, and the medical decision-making described in the above note were completed with the assistance of the mid-level provider. I reviewed and agree with the findings presented. I attest that I had a [id number] encounter with the patient on the same day, and personally performed and documented my assessment and findings in the medical record. Ignacia Malone December 28, 2016 08:17 Tam Leon MD January 04, 2017 22:00
--- NOTE | 2016-12-28 08:57 | HHI.PR ---
Subjective Remarks The patient was resting comfortably in bed. She said she would like to ambulate with a walker because she thinks that'll help her get around with the wound vac. She says her pain is well-controlled at this time. No acute complaints. Objective Vitals Vital Signs Date Time Temp Pulse Resp B/P Pulse Ox O2 Delivery O2 Flow Rate FiO2 12/28/16 08:00 97.2 55 18 116/79 94 12/28/16 00:00 96.9 52 20 125/81 95 12/27/16 20:00 97.9 49 20 124/82 93 12/27/16 18:53 16 12/27/16 16:00 98.6 55 18 152/86 94 12/27/16 14:55 68 16 158/81 98 Room Air 12/27/16 14:40 98.0 66 16 140/85 95 Room Air 12/27/16 14:25 68 16 129/82 96 Room Air 12/27/16 14:10 98.0 82 16 146/73 97 Room Air 12/27/16 12:48 98.5 67 18 136/86 96 12/27/16 12:00 98.6 54 20 128/87 96 I/O 12/27/16 12/27/16 12/27/16 12/28/16 12/28/16 12/28/16 07:00 15:00 23:00 07:00 15:00 23:00 Intake Total 1260 ml 300 ml 460 ml 245 ml Balance 1260 ml 300 ml 460 ml 245 ml Intake Oral 240 ml 240 ml 120 ml IV Total 1020 ml 220 ml 125 ml Other 300 ml # Voids 2 1 1 1 # Bowel Movements 2 0 0 Result Diagram: 12/27/16 0530 12/27/16 0530 Imaging Last Impressions Chest X-Ray 12/26/16 1246 Signed Impressions: Service Date/Time: Monday, December 26, 2016 12:57 - CONCLUSION: 1. Blunting of the costophrenic recesses consistent with tiny pleural effusions and/or pleural thickening. 2. No acute focal pulmonary infiltrate or pulmonary vascular congestion. Dat Villavicencio MD Abdomen/Pelvis CT 12/26/16 0000 Signed Impressions: Service Date/Time: Monday, December 26, 2016 13:49 - CONCLUSION: 1. Inflammatory process involving the right lower quadrant intra-abdominal wall. No abscess or fluid collection. 2. Solitary enlarged left external iliac lymph node. No other adenopathy appreciated. Consider followup CT of the abdomen and pelvis in 6-12 months to document stability. Heber Izquierdo Jr., MD Objective Remarks GENERAL: Resting comfortably, no obvious distress. SKIN: Wound vac in place in right suprapubic area. Still some induration of right inguinal ligament. Nontender to palpation. HEAD: Atraumatic. Normocephalic. EYES: Pupils equal and round. No scleral icterus. No injection or drainage. ENT: No nasal bleeding or discharge. Mucous membranes pink and moist. NECK: Trachea midline. No JVD. CARDIOVASCULAR: Regular rate and rhythm. No murmur appreciated. RESPIRATORY: No accessory muscle use. Clear to auscultation. Breath sounds equal bilaterally. GASTROINTESTINAL: Abdomen soft, non-tender, nondistended. Hepatic and splenic margins not palpable. MUSCULOSKELETAL: No obvious deformities. No clubbing. No cyanosis. No edema. NEUROLOGICAL: Awake and alert. No obvious cranial nerve deficits. Motor grossly within normal limits. Normal speech. PSYCHIATRIC: Appropriate mood and affect; insight and judgment normal. Procedures I&D 12/27/16. Medications and IVs Current Medications Medications (Trade) Dose Ordered Sig/Deann Route Start Time Stop Time Status Last Admin (NS Flush) 2 ml UNSCH PRN IV FLUSH 12/26/16 15:15 (NS Flush) 2 ml BID IV FLUSH 12/26/16 21:00 12/27/16 20:18 (Tylenol) 650 mg Q4H PRN PO 12/26/16 15:15 (Zofran Inj) 4 mg Q6H PRN IVP 12/26/16 15:15 (Colace) 100 mg Q12HR PO 12/26/16 21:00 12/27/16 20:18 (Senokot) 17.2 mg Q12H PRN PO 12/26/16 15:15 (Tylenol) 650 mg Q6H PRN PO 12/26/16 15:15 (Roxicodone) 10 mg Q4H PRN PO 12/26/16 15:15 12/27/16 16:09 (Morphine Inj) 4 mg Q3H PRN IV 12/26/16 15:15 (Roxicodone) 5 mg Q4H PRN PO 12/26/16 15:15 12/28/16 02:28 Naloxone HCl 0.4 mg 0.4 mg UNSCH PRN IV 12/26/16 15:15 Pharmacy Profile Note 0 ml @ 0 mls/hr UNSCH OTHER 12/26/16 15:30 (Vancomycin Inj/ NS 250 ml Inj) 250 ml @ 250 mls/hr DAILY@13 IV 12/27/16 13:00 12/27/16 13:07 Miscellaneous Information SPECIFIC LAB TO BE DRAWN:VANCO TROUGH DATE... ONCE ONCE .XX 12/29/16 12:45 12/29/16 12:46 (Rocephin Inj/NS Inj) 100 ml @ 200 mls/hr Q24H IV 12/28/16 09:00 A/P Assessment and Plan Suprapubic abscess The pt developed an abscess following shaving in that area. She did endorse significant drainage from the site and she says it looks and feels a lot better. CT showed: Inflammatory process involving the right lower quadrant intra-abdominal wall; No abscess or fluid collection; Solitary enlarged left external iliac lymph node; No other adenopathy appreciated. S/p I&D 12/28. Wound culture growing MRSA. - continue vancomycin. - pain control with a bowel regimen. - general surgery following. Continue wound vac. - follow blood cultures. - followup CT of the abdomen and pelvis in 6-12 months to document stability of lymph node. UTI Urine growing e coli. - ceftriaxone added. Nicotine dependence The pt smokes a pack daily. - cessation instruction. - nicotine patch if needed. PPx: SCDs. Discharge Planning Awaiting surgical clearance. Melecio Quick DO December 28, 2016 08:57
[2016-12-28] MEDS ORDERED: cefTRIAXone INJ 1,000 MG in SODIUM CHLORIDE 0.9% INJ 100 ML IV SCH (09:00)
[2016-12-28] MEDS: SODIUM CHLORIDE 0.9% FLUSH 10 ML FLUSH IV FLUSH SCH ×2 (09:00→19:55)
[2016-12-28] MEDS: DOCUSATE SODIUM 100 MG CAP PO SCH ×2 (10:20→19:56)
[2016-12-28 12:00] VITALS: BP 121/78; PULSE 56; RESP 18; TEMP 98; O2SAT 97
--- NOTE | 2016-12-28 13:44 | HHI.FF ---
Face to Face Verification Diagnosis: (1) Abdominal wall abscess Home Health Nursing Order: Wound care and dressing changes Instructions: RIGHT groin If Wound Vac in place upon DC ---Plan for Wound Vac changes MWF to start Wound Vac change on 01/01 If Wet to dry dressing in place--- saline soaked 4x4 gauze loosely packing into wound paying special attention to tunnelled area; dry dressing over; change BID (once daily done by nursing staff; other time by patient/family) I have seen patient Kimberly Espinosa on 12/28/16. My clinical findings support the need for the requested home health care services because: Limited ability to care for self High risk of falls I certify that my clinical findings support that this patient is homebound because: Post-op weakness Ignacia Malone [facility] December 28, 2016 13:44
[2016-12-28] MEDS: VANCOMYCIN INJ 1,000 MG in SODIUM CHLOR 0.9% 250 ML INJ 250 ML IV SCH (14:39)
[2016-12-28 16:00] VITALS: BP 112/65; PULSE 65; RESP 18; TEMP 97.8; O2SAT 94
--- NOTE | 2016-12-28 17:58 | PD.CONS ---
History of Present Illness Service ID CONSULT DR ALMONTE Consult Requested By HOSPITALIST Reason for Consult RIGHT GROIN ABSCESS Primary Care Physician No Primary Care Physician Diagnoses: (1) Abdominal wall abscess History of Present Illness 61 Y/O FEMALE ADM WITH RIGHT GROIN ABSCESS. SHE IS A LAND DEVELOPMENT PROJECT MANAGER AND STATES NOTED A RIGHT GROIN/PUBIC LESION THAT WAS TENDER AND SWOLLEN ABOUT 1 WEEK AGO. SHE WAS SEEN IN URGENT CARE ON SUNDAY BUT LEFT BEFORE BEING SEEN. SHE USED A HOME REMEDY AND INITIALLY SAW IMPROVEMENT HOWEVER IT SUBSEQUENTLY WORSENED. SHE CAME IN TO THE ER NO FEVER OR CHILLS. SHE IS S/P I&D WITH WOUND VAC. CULTURE + MRSA. BC 1 OF 2 BOTTLES + GPC. ID CONSULTED. SHE HAS ECOLI IN THE URINE WELL. (Katie Thorne) History of Present Illness Pain and swelling in right groin. Now better (Eufemia Almonte MD) Review of Systems Constitutional: DENIES: Fatigue, Chills Endocrine: DENIES: Heat/cold intolerance Eyes: DENIES: Eye inflammation Ears, nose, mouth, throat: DENIES: Oral lesions, Throat pain Respiratory: DENIES: Sputum production Cardiovascular: DENIES: Syncope, PND, Lower Extremity Edema Gastrointestinal: COMPLAINS OF: Abdominal pain Hematologic/lymphatic: DENIES: Lymphadenopathy Neurologic: DENIES: Headache Psychiatric: DENIES: Mood changes Except as stated in HPI: all other systems reviewed are Neg (Katie Thorne) Past Family Social History Allergies: Coded Allergies: Alcohol (Verified Allergy, Severe, 12/26/16) Doxycycline (Verified Allergy, Severe, 12/26/16) *MDRO Multi-Drug Resistant Organism (Verified Adverse Reaction, Unknown, ) 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 Past Medical History NONE Past Surgical History Past Medical History None Past Surgical History Bilateral wrist surgery Hysterectomy Tubal ligation Tonsillectomy Reported Medications Past Medical History None Reported Medications None Active Ordered Medications VANCOMYCIN ROCEPHIN Family History NONE Social History + PPD NO ETOH NO DRUG USE 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 SKIN: No rashes, ecchymoses or lesions. Cool and dry. HEAD: Atraumatic. Normocephalic. No temporal or scalp tenderness. EYES: Pupils equal round and reactive. Extraocular motions intact. No scleral icterus. No injection or drainage. ENT: Nose without bleeding, purulent drainage or septal hematoma. Throat without erythema, tonsillar hypertrophy or exudate. Uvula midline. Airway patent. NECK: Trachea midline. No JVD or lymphadenopathy. Supple, nontender, no meningeal signs. CARDIOVASCULAR: Regular rate and rhythm without murmurs, gallops, or rubs. RESPIRATORY: Clear to auscultation. Breath sounds equal bilaterally. No wheezes , rales, or rhonchi. GASTROINTESTINAL: Abdomen soft, + Wound vac to right pubic area with cellulitis surrounding better per patient MUSCULOSKELETAL: Extremities without clubbing, cyanosis, or edema. No joint tenderness, effusion, or edema noted. No calf tenderness. Negative Homans sign bilaterally. NEUROLOGICAL: Awake and alert. Cranial nerves II through XII intact. Motor and sensory grossly within normal limits. Five out of 5 muscle strength in all muscle groups. Normal speech. Laboratory Date/Time Procedure Status Source Growth 12/27/16 13:50 Gram Stain - Final Resulted Wound Groin 12/27/16 13:50 Wound Culture - Preliminary Resulted S. Aureus Mrsa 12/27/16 13:50 Fungal Smear - Final Resulted Wound Groin NO FUNGAL ELEMENTS SEEN. 12/27/16 13:50 Fungal Culture Resulted Wound Groin Pending 12/27/16 13:50 Acid Fast Stain Received Wound Groin Pending 12/27/16 13:50 Mycobacterial Culture Received Wound Groin Pending 12/26/16 13:05 Aerobic Blood Culture - Preliminary Resulted Blood Peripheral Gram Positive Cocci 12/26/16 13:05 Anaerobic Blood Culture - Preliminary Resulted Blood Peripheral NO GROWTH IN 2 DAYS 12/26/16 12:50 Urine Culture - Final Complete Urine Catheterized Urine Escherichia Coli (Katie Thorne) Physical Exam RT groin with wound vac- Erythema and induration going laterally over right hip area (Eufemia Almonte MD) Result Diagram: 12/27/16 0530 12/27/16 0530 Assessment and Plan Problem List: (1) Abdominal wall abscess Status: Acute Plan: +mrsa agree with vanco follow trough may need IV on discharge will follow closely follow bc will repeat uac if negative stop rocephin soon (2) UTI (urinary tract infection) Status: Acute (Katie Thorne) Problem List: (1) Abdominal wall abscess Status: Acute Plan: +mrsa agree with vanco follow trough may need IV on discharge will follow closely follow bc Continue IV Vancomycin Monitor clinically Follow blood culture (2) UTI (urinary tract infection) Status: Acute Assessment and Plan This is Asymptomatic bacteruria Stop Ceftriaxone (Eufemia Almonte MD) Problem Qualifiers (1) UTI (urinary tract infection): Qualified Code: N39.0 - Urinary tract infection without hematuria, site unspecified Katie Thorne December 28, 2016 17:58 Eufemia Almonte MD December 28, 2016 18:52
--- NOTE | 2016-12-28 18:42 | EKG ---
Date Performed: 12/27/2016 Time Performed: 11:40:54 PTAGE: 61 years EKG: Sinus rhythm . Normal ECG NO PREVIOUS TRACING DOCTOR: Lb Penn Interpretating Date/Time 12/28/2016 18:41:40
[2016-12-28 20:00] VITALS: BP 145/92; PULSE 62; RESP 18; TEMP 96.7; O2SAT 96
[2016-12-29] VITALS: BP 135/84; PULSE 61; RESP 18; TEMP 97.3; O2SAT 97
--- NOTE | 2016-12-29 08:06 | HHI.PR ---
Subjective Subjective Notes no fevers, c/o pain to groin site, vac in place Objective Vitals/I&O Vital Signs Date Time Temp Pulse Resp B/P Pulse Ox O2 Delivery O2 Flow Rate FiO2 12/29/16 00:00 97.3 61 18 135/84 97 12/27/16 14:55 Room Air 12/26/16 13:27 99 Labs Date/Time Procedure Status Source Growth 12/27/16 13:50 Gram Stain - Final Resulted Wound Groin 12/27/16 13:50 Wound Culture - Preliminary Resulted S. Aureus Mrsa 12/27/16 13:50 Fungal Smear - Final Resulted Wound Groin NO FUNGAL ELEMENTS SEEN. 12/27/16 13:50 Fungal Culture Resulted Wound Groin Pending 12/27/16 13:50 Acid Fast Stain Received Wound Groin Pending 12/27/16 13:50 Mycobacterial Culture Received Wound Groin Pending 12/26/16 13:05 Aerobic Blood Culture - Preliminary Resulted Blood Peripheral Gram Positive Cocci 12/26/16 13:05 Anaerobic Blood Culture - Preliminary Resulted Blood Peripheral NO GROWTH IN 2 DAYS 12/26/16 12:50 Urine Culture - Final Complete Urine Catheterized Urine Escherichia Coli Radiology Last 48 hours Impressions Chest X-Ray 12/26/16 1246 Signed Impressions: Service Date/Time: Monday, December 26, 2016 12:57 - CONCLUSION: 1. Blunting of the costophrenic recesses consistent with tiny pleural effusions and/or pleural thickening. 2. No acute focal pulmonary infiltrate or pulmonary vascular congestion. Dat Villavicencio MD Abdomen/Pelvis CT 12/26/16 0000 Signed Impressions: Service Date/Time: Monday, December 26, 2016 13:49 - CONCLUSION: 1. Inflammatory process involving the right lower quadrant intra-abdominal wall. No abscess or fluid collection. 2. Solitary enlarged left external iliac lymph node. No other adenopathy appreciated. Consider followup CT of the abdomen and pelvis in 6-12 months to document stability. Heber Izquierdo Jr., MD Cardiovascular: Regular Lungs: Clear Abdomen: Other (groin: vac with good seal) A/P Assessment and Plan groin abscess currently with vac PLAN reg diet vanc for mrsa vac removed no undrained fluid, transition to wet to dry- TID changes while in the hospital I am ok with d/c planning if pt can tolerate bedside dressing changes with po meds and HHC, if she can be transitioned to po abx vs iv vanc and picc I will continue to follow, will see prn over the weekend Tam Leon MD December 29, 2016 08:06
[2016-12-29] MEDS: DOCUSATE SODIUM 100 MG CAP PO SCH ×2 (08:12→20:44)
[2016-12-29] MEDS: SODIUM CHLORIDE 0.9% FLUSH 10 ML FLUSH IV FLUSH SCH ×2 (08:12→20:44)
[2016-12-29 12:00] VITALS: BP 133/82; PULSE 62; RESP 18; TEMP 97.7; O2SAT 96
[2016-12-29] MEDS ORDERED: PHARMACY ORDERED LAB ONE (12:45)
--- NOTE | 2016-12-29 13:20 | HHI.PR ---
Subjective Remarks patient denies fevers or chills states wound vac was taken out today and wound was cleaned denies cp/sob denies diarrhea denies rash Objective Vitals Vital Signs Date Time Temp Pulse Resp B/P Pulse Ox O2 Delivery O2 Flow Rate FiO2 12/29/16 12:00 97.7 62 18 133/82 96 12/29/16 00:00 97.3 61 18 135/84 97 12/28/16 20:00 96.7 62 18 145/92 96 12/28/16 16:00 97.8 65 18 112/65 94 I/O 12/28/16 12/28/16 12/28/16 12/29/16 12/29/16 12/29/16 07:00 15:00 23:00 07:00 15:00 23:00 Intake Total 245 ml 725 ml 240 ml Balance 245 ml 725 ml 240 ml Intake Oral 120 ml 725 ml 240 ml IV Total 125 ml # Voids 1 3 3 # Bowel Movements 0 0 0 Result Diagram: 12/27/16 0530 12/27/16 0530 Imaging Last Impressions Chest X-Ray 12/26/16 1246 Signed Impressions: Service Date/Time: Monday, December 26, 2016 12:57 - CONCLUSION: 1. Blunting of the costophrenic recesses consistent with tiny pleural effusions and/or pleural thickening. 2. No acute focal pulmonary infiltrate or pulmonary vascular congestion. Dat Villavicencio MD Abdomen/Pelvis CT 12/26/16 0000 Signed Impressions: Service Date/Time: Monday, December 26, 2016 13:49 - CONCLUSION: 1. Inflammatory process involving the right lower quadrant intra-abdominal wall. No abscess or fluid collection. 2. Solitary enlarged left external iliac lymph node. No other adenopathy appreciated. Consider followup CT of the abdomen and pelvis in 6-12 months to document stability. Heber Izquierdo Jr., MD Objective Remarks GENERAL: Resting comfortably, no obvious distress. SKIN: There is dressing over wound C/D/I. Nontender to palpation. HEAD: Atraumatic. Normocephalic. EYES: Pupils equal and round. No scleral icterus. No injection or drainage. ENT: No nasal bleeding or discharge. Mucous membranes pink and moist. NECK: Trachea midline. No JVD. CARDIOVASCULAR: Regular rate and rhythm. No murmur appreciated. RESPIRATORY: No accessory muscle use. Clear to auscultation. Breath sounds equal bilaterally. GASTROINTESTINAL: Abdomen soft, non-tender, nondistended. Hepatic and splenic margins not palpable. MUSCULOSKELETAL: No obvious deformities. No clubbing. No cyanosis. No edema. NEUROLOGICAL: Awake and alert. No obvious cranial nerve deficits. Motor grossly within normal limits. Normal speech. PSYCHIATRIC: Appropriate mood and affect; insight and judgment normal. Procedures I&D 12/27/16. Medications and IVs Current Medications Medications (Trade) Dose Ordered Sig/Deann Route Start Time Stop Time Status Last Admin (NS Flush) 2 ml UNSCH PRN IV FLUSH 12/26/16 15:15 (NS Flush) 2 ml BID IV FLUSH 12/26/16 21:00 12/29/16 08:12 (Tylenol) 650 mg Q4H PRN PO 12/26/16 15:15 (Zofran Inj) 4 mg Q6H PRN IVP 12/26/16 15:15 (Colace) 100 mg Q12HR PO 12/26/16 21:00 12/28/16 19:56 (Senokot) 17.2 mg Q12H PRN PO 12/26/16 15:15 (Tylenol) 650 mg Q6H PRN PO 12/26/16 15:15 (Roxicodone) 10 mg Q4H PRN PO 12/26/16 15:15 12/29/16 08:11 (Morphine Inj) 4 mg Q3H PRN IV 12/26/16 15:15 12/29/16 07:38 (Roxicodone) 5 mg Q4H PRN PO 12/26/16 15:15 12/28/16 19:56 Naloxone HCl 0.4 mg 0.4 mg UNSCH PRN IV 12/26/16 15:15 Pharmacy Profile Note 0 ml @ 0 mls/hr UNSCH OTHER 12/26/16 15:30 (Vancomycin Inj/ NS 250 ml Inj) 250 ml @ 250 mls/hr DAILY@13 IV 12/27/16 13:00 12/28/16 14:39 Urinary Catheter: No Vascular Central Line Catheter: No A/P Problem List: (1) Abdominal wall abscess ICD Code: L02.211 Status: Acute Plan: Status post I&D on 12/28/16. Wound culture growing MRSA. CT abdomen and pelvis as described above. Continue IV vancomycin. Appreciate ID recommendations - device as per infectious disease. Gen. surgery following. One that as per general surgery. Blood cultures so far negative. Follow-up blood cultures. Patient may need PICC line placed for outpatient antibiotics. (2) Asymptomatic bacteriuria ICD Code: R82.71 Status: Acute Plan: Patient started on IV Rocephin for growing Escherichia coli urine culture. However no blood cell counts or symptoms of UTI. Rocephin discontinued by ID. (3) Nicotine addiction ICD Code: F17.200 Status: Acute Plan: Advises smoking cessation. Nicotine patch as needed. (4) Lymphadenopathy, abdominal ICD Code: R59.0 Status: Acute Plan: Possibly reactive to abdominal wound infection. As described on CT of the abdomen and pelvis above. Repeat CT scan in 6-12 months to document stability of lymph node. Assessment and Plan DVT prophylaxis: SCDs, I will add heparin subcutaneously. Discharge Planning Pending surgical clearance. Problem Qualifiers (1) Nicotine addiction: Qualified Code: F17.210 - Cigarette nicotine dependence without complication Jhony Gunter MD December 29, 2016 13:20
[2016-12-29] MEDS: HEPARIN SODIUM - SQ 10,000 UNITS/ML VIAL SQ SCH ×2 (14:45→20:43)
[2016-12-29 16:00] VITALS: BP 140/81; PULSE 65; RESP 18; TEMP 98; O2SAT 96
[2016-12-29 20:05] VITALS: BP 121/80; PULSE 66; RESP 14; TEMP 97.9; O2SAT 98
[2016-12-30 00:05] VITALS: BP 129/81; PULSE 54; RESP 16; TEMP 98; O2SAT 94
[2016-12-30] MEDS: HEPARIN SODIUM - SQ 10,000 UNITS/ML VIAL SQ SCH (04:17)
[2016-12-30 08:00] VITALS: BP 135/85; PULSE 58; RESP 16; TEMP 97.5; O2SAT 96
[2016-12-30] MEDS ORDERED: VANCOMYCIN INJ 1,000 MG in SODIUM CHLOR 0.9% 250 ML INJ 250 ML IV SCH (09:00)
[2016-12-30] MEDS: DOCUSATE SODIUM 100 MG CAP PO SCH (09:00)
[2016-12-30] MEDS: SODIUM CHLORIDE 0.9% FLUSH 10 ML FLUSH IV FLUSH SCH (09:11)
--- NOTE | 2016-12-30 10:09 | HHI.IDPN ---
Subjective Subjective Remarks ID FU DR SKINNER FEELING WELL ANXIOUS TO GO HOME WOUND VAC DCD Antibiotics VANCOMYCIN IV Allergies: Coded Allergies: Alcohol (Verified Allergy, Severe, 12/26/16) Doxycycline (Verified Allergy, Severe, 12/26/16) *MDRO Multi-Drug Resistant Organism (Verified Adverse Reaction, Unknown, ) 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; (groin) - 12/27/16 Review of Systems Constitutional Constitutional Remarks NO FEVER OR CHILLS FEELS BETTER Integumentary Skin: Wounds (IMPROVED ) Objective . Vital Signs Date Time Temp Pulse Resp B/P Pulse Ox O2 Delivery O2 Flow Rate FiO2 12/30/16 08:00 97.5 58 16 135/85 96 12/30/16 05:35 12/30/16 00:05 98.0 54 16 129/81 94 12/29/16 20:05 97.9 66 14 121/80 98 12/29/16 16:00 98.0 65 18 140/81 96 12/29/16 12:00 97.7 62 18 133/82 96 12/29/16 12/29/16 12/30/16 15:00 23:00 07:00 # Voids 1 . Microbiology Date/Time Procedure Status Source Growth 12/27/16 13:50 Gram Stain - Final Complete Wound Groin 12/27/16 13:50 Wound Culture - Final Complete S. Aureus Mrsa 12/27/16 13:50 Acid Fast Stain - Final Resulted Wound Groin NO ACID FAST BACILLI SEEN 12/27/16 13:50 Mycobacterial Culture Resulted Wound Groin Pending 12/27/16 13:50 Fungal Smear - Final Resulted Wound Groin NO FUNGAL ELEMENTS SEEN. 12/27/16 13:50 Fungal Culture Resulted Wound Groin Pending Physical Exam AWAKE O X 3 PERRL NS CHEST : CLEAR EQUAL NO WHEESES RHONCHI CARDIAC RRR ABD SOFT + BS RIGHT GROIN WOUND IS NOTED WITH SEROUS DRAINAGE FEELS BETTER EXT NO EDEMA Assessment & Plan Diagnosis: (1) Abdominal wall abscess Plan: +mrsa agree with vanco follow trough see script on dc can do bactrim/ rifampin x 2 weeks with fu in our office in 2 weeks (2) UTI (urinary tract infection) Problem Qualifiers (1) UTI (urinary tract infection): Qualified Code: N39.0 - Urinary tract infection without hematuria, site unspecified Thorne,Katie HOSPICE MUSIC THERAPIST December 30, 2016 10:09
[2016-12-30] MEDS ORDERED: OXYC-392 PO (11:34)
[2016-12-30] MEDS ORDERED: RIFA300C2 PO (11:34)
[2016-12-30] MEDS ORDERED: BACT800T5 PO (11:34)
--- NOTE | 2016-12-30 11:41 | HHI.DS ---
Discharge Summary Admission Date December 28, 2016 at 13:11 Discharge Date: December 30, 2016 Admitting Diagnosis inferior abdominal wall cellulitis, draining abscess (1) Abdominal wall abscess ICD Code: L02.211 Diagnosis: Principal (2) Asymptomatic bacteriuria ICD Code: R82.71 Diagnosis: Principal (3) Nicotine addiction ICD Code: F17.200 Diagnosis: Principal (4) Lymphadenopathy, abdominal ICD Code: R59.0 Diagnosis: Principal Procedures I&D 12/27/16. Brief History - From Admission The patient is a 61-year-old female with no significant past medical history who is presenting to the hospital with an abscess. The patient says that about 4 or 5 days ago she noticed a boil on the mound of her pubic area. She did say she shaves that area. She said it was bothersome and painful. She said it continued to enlarge. She tried taking hot baths and using warm compresses but those did not seem to help. On Sunday she went to urgent care but she left before they could treat her because there were insurance problems. She says she tried using a bread and milk poultice and after using that the area started draining spontaneously. She denied a foul-smelling odor associated with it. She did say that the area of infection along with the lower right side of her abdomen and right flank was very red and very tender. She said the pain was a 9 out of 10 in severity at its worst. She denies any fevers. She does endorse a loss of appetite. She says the abscess has continued to drain and today it looks 65% better than it did a few days ago. She went back to urgent care today and she was referred to the emergency department. She currently says she is pain-free. She said previously she had a hard time ambulating secondary to the pain but now she is ambulating at baseline. CBC/BMP: 12/27/16 0530 12/30/16 0740 Significant Findings Laboratory Tests Test 12/30/16 07:40 Estimat Glomerular Filtration 66 ML/MIN (>89) Rate Imaging Last Impressions Chest X-Ray 12/26/16 1246 Signed Impressions: Service Date/Time: Monday, December 26, 2016 12:57 - CONCLUSION: 1. Blunting of the costophrenic recesses consistent with tiny pleural effusions and/or pleural thickening. 2. No acute focal pulmonary infiltrate or pulmonary vascular congestion. Dat Villavicencio MD Abdomen/Pelvis CT 12/26/16 0000 Signed Impressions: Service Date/Time: Monday, December 26, 2016 13:49 - CONCLUSION: 1. Inflammatory process involving the right lower quadrant intra-abdominal wall. No abscess or fluid collection. 2. Solitary enlarged left external iliac lymph node. No other adenopathy appreciated. Consider followup CT of the abdomen and pelvis in 6-12 months to document stability. Heber Izquierdo Jr., MD PE at Discharge GENERAL: Resting comfortably, no obvious distress. SKIN: There is dressing over wound C/D/I. Nontender to palpation. HEAD: Atraumatic. Normocephalic. EYES: Pupils equal and round. No scleral icterus. No injection or drainage. ENT: No nasal bleeding or discharge. Mucous membranes pink and moist. NECK: Trachea midline. No JVD. CARDIOVASCULAR: Regular rate and rhythm. No murmur appreciated. RESPIRATORY: No accessory muscle use. Clear to auscultation. Breath sounds equal bilaterally. GASTROINTESTINAL: Abdomen soft, non-tender, nondistended. Hepatic and splenic margins not palpable. MUSCULOSKELETAL: No obvious deformities. No clubbing. No cyanosis. No edema. NEUROLOGICAL: Awake and alert. No obvious cranial nerve deficits. Motor grossly within normal limits. Normal speech. PSYCHIATRIC: Appropriate mood and affect; insight and judgment normal. Hospital Course (1) Abdominal wall abscess Status post I&D on 12/28/16. Wound culture growing MRSA. CT abdomen and pelvis as described above. Treated with IV vancomycin ID consulted and general surgery consulted. One out of 2 sets of blood cultures was positive for staph coagulase negative. ID cleared the patient to be discharged home on by mouth Bactrim and rifampin 14 days. Patient to follow-up with infectious disease in 2 weeks. (2) Asymptomatic bacteriuria Patient started on IV Rocephin for growing Escherichia coli urine culture. However no blood cell counts or symptoms of UTI. Rocephin discontinued by ID. (3) Nicotine addiction Advised smoking cessation. Nicotine patch as needed. (4) Lymphadenopathy, abdominal Possibly reactive to abdominal wound infection. As described on CT of the abdomen and pelvis above. Repeat CT scan in 6-12 months to document stability of lymph node. This was instructed in the discharge instructions to the patient's primary care physician. He was also explained to the patient. DVT prophylaxis: The patient was place on SCDs and heparin subcutaneous. Pt Condition on Discharge: Stable Discharge Disposition: Disch w/ Home Health Serv Discharge Time: > 30 minutes Discharge Instructions DIET: Follow Instructions for: As Tolerated, No Restrictions Activities you can perform: Regular-No Restrictions Follow up Referrals: Infectious Disease - 2 Weeks with Eufemia Almonte MD PCP Follow-up - 1 Month Will need repeat Ct scan of abdomen and pelvis in 6 to 12 months to document stability of lymphadenopathy seen on Ct scan on this admission New Medications: Rifampin (Rifampin) 300 Mg Cap 300 MG PO BID Infection #28 Ref 0 CAP Sulfamethoxazole-Trimethoprim (Bactrim DS) 800-160 Mg Tab 1 TAB PO BID Infection #28 Ref 0 TAB Oxycodone (Oxycodone) 5 Mg Tab 5 MG PO Q4H PRN pain #30 TAB Jhony Gunter MD December 30, 2016 11:40
[2016-12-30 12:00] VITALS: BP 130/80; PULSE 60; RESP 16; TEMP 97.5; O2SAT 97
[2016-12-31] MEDS ORDERED: PHARMACY ORDERED LAB ONE (02:45)
== END 2016-12-30 15:06 | disposition home or self-care (01) | DRG 581 ==
LOC: PHED 12:16 → PHEDA 14:51 → PH3A 15:39 → OBSVTOIN 12-28 13:11
PROVIDERS: ADMIT Hospitalist; ATTEND Hospitalist
PROC: 2W13X6Z Compression of Abdominal Wall using Pressure Dressing (ICD-10-PCS; 2016-12-27)
PROC: 0J9C0ZZ Drainage of Pelvic Region Subcutaneous Tissue and Fascia, Open Approach (ICD-10-PCS; principal; 2016-12-27 13:30)
DX: L02.211 Cutaneous abscess of abdominal wall (principal); R82.71 Bacteriuria; B95.62 Methicillin resistant Staphylococcus aureus infection as the cause of diseases classified elsewhere; R59.0 Localized enlarged lymph nodes; F12.90 Cannabis use, unspecified, uncomplicated; F17.210 Nicotine dependence, cigarettes, uncomplicated
CPT/HCPCS: 71010; 74177; 80048; 80053; 80202; 81001; 82565; 83605; 85025; 86403; 87015; 87040; 87070; 87077; 87086; 87102; 87116; 87147; 87186; 87205; 87206; 93005; 96365; 96367; G0378; J0696; J1644; J2250; J2270; J2405; J2543; J3010; J3370; J7030; J7050; J7120; Q9967